=== PATIENT | female | born 1995 | race Caucasian/White ===

== ENCOUNTER 2024-09-13 20:29 | Emergency (ER) | payer OTHER, SELFPAY ==
[2024-09-13 20:46] VITALS: BP 129/58; PULSE 114; RESP 14; TEMP 36.1; O2SAT 100; BMI 21.6
--- NOTE | 2024-09-13 21:52 | ED.ANXIETY ---
HPI - Anxiety General Chief Complaint: Anxiety Stated Complaint: Anxiety, Had an edible, Really High Time Seen by Provider: 09/13/24 21:01 Mode of arrival: Ambulatory History of Present Illness HPI narrative: 29-year-old female presents for severe anxiety in the sensation that her throat was closing after eating a marijuana edible. Upon my evaluation the patient is sleeping comfortably, no acute distress, normal vitals. Significant other at bedside states that after doing the edible the patient began to feel high anxiety and felt like her throat was closing up, and asked to come to the ER. Related Data Allergies Allergy/AdvReac Type Severity Reaction Status Date / Time No Known Drug Allergies Allergy Verified 09/13/24 20:46 Patient History Social History Smoking Status: Unknown if ever smoked Smoking Status: Unknown if ever smoked Exam Initial Vital Signs Initial Vital Signs: Vital Signs Temperature 97.0 F L 09/13/24 20:46 Pulse Rate 114 H 09/13/24 20:46 Respiratory Rate 14 09/13/24 20:46 Blood Pressure 129/58 L 09/13/24 20:46 Pulse Oximetry 100 09/13/24 20:46 Oxygen Delivery Method Room Air 09/13/24 20:46 Const: Awake, alert, no acute distress, nontoxic appearing HEENT: Airway patent, mucous membranes moist, no stridor Cardiac: regular rate, regular rhythm RESP: unlabored, clear bilaterally, no wheezing Skin: Warm, Dry, intact, no rashes Neuro: AO x3, CN II-XII grossly intact, moves all extremities Course Vital Signs Vital signs: Vital Signs - 8 hr 09/13/24 20:46 09/13/24 21:53 Temperature 97.0 F L Pulse Rate 114 H 89 Respiratory Rate 14 18 Blood Pressure 129/58 L 116/70 Pulse Oximetry 100 98 Oxygen Delivery Method Room Air Room Air MDM - Anxiety MDM Narrative Medical decision making narrative: Anxiety attack after marijuana edible consumption. On exam patient has no complaints, she was now sleeping comfortably in bed. Vitals have normalized. She was not in any respiratory distress and no evidence of airway closure or respiratory compromise. Discharge Plan Departure Patient Disposition: Home Clinical Impression: Adverse drug reaction Instructions: DI for Adverse Drug Reaction--Other Activity Restrictions/Additional Instructions: Your exam today is normal. Your airway is clear and there are no signs of allergic reaction at this time. Drink a lot of water tonight and get rest. I do recommend avoiding gummies if you have these reactions to them in the future. Stand Alone Forms: Patient Portal/API/Survey
[2024-09-13 21:53] VITALS: BP 116/70; PULSE 89; RESP 18; O2SAT 98
== END 2024-09-13 21:58 | disposition home or self-care (01) ==
PROVIDERS: Emergency Provider Emergency Medicine
DX: F12.980 Cannabis use, unspecified with anxiety disorder (principal)
CPT/HCPCS: 99281